=== PATIENT | female | born 1985 | race Caucasian/White ===

== ENCOUNTER 2017-09-07 09:19 | Emergency (ER) | payer SELFPAY ==
[2017-09-07 10:08] VITALS: BP 111/65
--- NOTE | 2017-09-07 11:17 | XRay Report ---
LEFT ANKLE, 3 views: History: left ankle pain. There is severe soft tissue swelling. Fracture of the distal tip of the fibula is identified with 2-3 mm displacement at the fracture site. No calcified callus is identified consistent with an acute injury. The distal tibia and talar dome are grossly intact. IMPRESSION: Distal fibular fracture.
[2017-09-07] MEDS ORDERED: MOTRIN PO ONE (12:17)
[2017-09-07] MEDS ORDERED: NORCO 7.5/325 PO ONE (12:17)
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
== END 2017-09-07 13:07 | disposition home or self-care (01) ==
LOC: ED 09:19
DX: S82.402A Unspecified fracture of shaft of left fibula, initial encounter for closed fracture (principal); F17.200 Nicotine dependence, unspecified, uncomplicated; W17.89XA Other fall from one level to another, initial encounter; Y93.89 Activity, other specified; Y92.89 Other specified places as the place of occurrence of the external cause; Y99.8 Other external cause status

== ENCOUNTER 2017-11-19 21:02 | Emergency (ER) | payer SELFPAY ==
[2017-11-19 21:48] VITALS: BP 115/60
[2017-11-19 22:30] LABS: Basophils % (Auto) 0.4 % (0.0-1.8); Eosinophils # (Auto) 0.1 K/mm3 (0.0-0.4); Eosinophils % (Auto) 0.6 % (0.0-4.3); Hematocrit 36.2 % (30.3-42.9); Lymphocytes # (Auto) 2.5 K/mm3 (1.2-5.4); Lymphocytes % (Auto) 22.7 % (13.4-35.0); Mean Corpuscular HGB Conc 33 % (30-34); Mean Corpuscular Hemoglobin 31 pg (28-32); Mean Corpuscular Volume 94 fl (79-97); Monocytes # (Auto) 0.6 K/mm3 (0.0-0.8); Monocytes % (Auto) 5.2 % (0.0-7.3); Platelet Count 283 K/mm3 (140-440); Red Blood Count 3.86 M/mm3 (3.65-5.03); Red Cell Distribution Width 14.3 % (13.2-15.2)
[2017-11-19 22:31] LABS: HCG Qualitative,Urine Positive (Negative)
[2017-11-19 22:35] LABS: Alanine Aminotransferase 10 units/L (7-56); Albumin 4.4 g/dL (3.9-5); BUN/Creatinine Ratio 14; Blood Urea Nitrogen 7 mg/dL (7-17); Calcium 9.5 mg/dL (8.4-10.2); Hemolysis Index 3
[2017-11-19 22:39] LABS: Bacteria,Urine 4+ /HPF (Negative); Bilirubin,Urine NEG (Negative); Blood,Urine MOD (Negative); Color,Urine Amber (Yellow); Mucus,Urine FEW /HPF; Protein,Urine <15 mg/dL mg/dL (Negative)
== END 2017-11-20 02:11 | disposition left against medical advice (07) ==
LOC: ED 21:02
DX: R11.2 Nausea with vomiting, unspecified (principal); R19.7 Diarrhea, unspecified; Z53.21 Procedure and treatment not carried out due to patient leaving prior to being seen by health care provider
CPT/HCPCS: 36415; 80053; 81001; 81025; 85025